=== PATIENT | male | born 1975 | race Caucasian/White ===

== ENCOUNTER 2024-09-26 16:04 | Outpatient (CLI) | payer OTHER, SELFPAY ==
[2024-09-26 16:48] LABS: Bilirubin Urine Negative (Negative); Blood Urine 3+ (Negative); Glucose Urine UA Negative (Normal); Ketones Urine Negative (Negative); Leukocyte Esterase Urine Negative (Negative); Nitrate Urine Negative (Negative); Protein Urine 3+ (Negative); Specific Gravity, Urine 1.013 (1.005-1.030); Urine Appearance Clear (CLEAR); Urine Color Yellow (Yellow); Urobilinogen Urine 0.2 mg/dL (Negative); pH Urine 6.5 (5-7)
[2024-09-26 17:03] LABS: Anion Gap 15.2 (5-19); Blood Urea Nitrogen 32 mg/dL (6-20); Calcium 9.1 mg/dL (8.5-10.5); Carbon Dioxide 28 mmol/L (22-29); Chloride 101 mmol/L (98-107); Glomerular Filtration Rate 40.5 mL/min (90-130); Glucose 104 mg/dL (65-115); Osmolality Calculated 297 mOsm/kg (285-295); Potassium 4.2 mmol/L (3.5-5.1); Sodium 140 mmol/L (136-145)
[2024-09-26 17:07] LABS: Urine Creatinine 89 mg/dL (39-259)
[2024-09-26 17:30] LABS: UA Manual Slide Review YES; UA Slide Review UA Slide Review Perf
[2024-09-26 17:31] LABS: Add Urine Culture? Yes; RBC Urine 25-40 /hpf (0-2); Squamous Epithelial Cell Urine 0-4 /hpf (0-5); WBC Urine 0-4 /hpf (0-5)
[2024-09-26 17:35] LABS: UPRO/UCREAT Ratio 2.25 mg/mg CR; Urine Protein Random 200 mg/dL
== END 2024-09-26 16:05 | disposition home or self-care (01) ==
PROVIDERS: PCP Nurse Practitioner Family; Visit Provider Registered Nurse
DX: R80.1 Persistent proteinuria, unspecified (principal)
CPT/HCPCS: 36415; 80048; 81001; 82570; 84156; 87086

== ENCOUNTER 2024-10-16 16:45 | Outpatient (CLI) | payer OTHER, SELFPAY ==
[2024-10-16 18:16] LABS: Albumin Level 3.8 g/dL (3.5-5.2); Anion Gap 15.3 (5-19); Blood Urea Nitrogen 39 mg/dL (6-20); Calcium 8.9 mg/dL (8.5-10.5); Carbon Dioxide 27 mmol/L (22-29); Chloride 103 mmol/L (98-107); Glomerular Filtration Rate 33.9 mL/min (90-130); Glucose 105 mg/dL (65-115); Phosphorus 4.1 mg/dL (2.5-4.5); Potassium 4.3 mmol/L (3.5-5.1); Sodium 141 mmol/L (136-145)
[2024-10-16 18:59] LABS: Urine Creatinine 86 mg/dL (39-259)
[2024-10-16 19:00] LABS: UPRO/UCREAT Ratio 1.45 mg/mg CR; Urine Protein Random 125 mg/dL
== END 2024-10-16 16:46 | disposition home or self-care (01) ==
LOC: LAB 16:54
PROVIDERS: Visit Provider Registered Nurse
DX: N18.32 Chronic kidney disease, stage 3b (principal); N02.8 Recurrent and persistent hematuria with other morphologic changes
CPT/HCPCS: 36415; 80069; 82570; 84156

== ENCOUNTER 2024-10-31 16:13 | Outpatient (CLI) | payer OTHER, SELFPAY ==
[2024-10-31 17:05] LABS: Albumin Level 3.8 g/dL (3.5-5.2); Anion Gap 12.2 (5-19); Blood Urea Nitrogen 48 mg/dL (6-20); Calcium 9.1 mg/dL (8.5-10.5); Carbon Dioxide 29 mmol/L (22-29); Chloride 102 mmol/L (98-107); Glomerular Filtration Rate 32.1 mL/min (90-130); Glucose 93 mg/dL (65-115); Phosphorus 4.3 mg/dL (2.5-4.5); Potassium 4.2 mmol/L (3.5-5.1); Sodium 139 mmol/L (136-145)
[2024-10-31 18:19] LABS: Creatinine Urine, Random 100 mg/dL (39-259)
[2024-10-31 18:32] LABS: Microalbum Creatinine Ratio Ur 650 mg/dL (0-20); Microalbumin Random Urine 65 ug/dL (0-20)
== END 2024-10-31 16:14 | disposition home or self-care (01) ==
LOC: LAB 16:16
PROVIDERS: PCP Family Medicine; Visit Provider Registered Nurse
DX: N18.32 Chronic kidney disease, stage 3b (principal)
CPT/HCPCS: 36415; 80069; 82044

== ENCOUNTER 2025-05-27 16:54 | Outpatient (CLI) | payer OTHER, SELFPAY ==
[2025-05-27 17:25] LABS: Hematocrit 38.2 % (37-53); Hemoglobin 12.40 g/dL (11.27-16.99); Mean Corpuscular HGB Conc 32.5 g/dL (30-55); Mean Corpuscular Hemoglobin 30.5 pg (27-33); Mean Corpuscular Volume 94.1 fl (82-101); Nucleated Red Blood Cells % 0 %; Platelet Count 211 10^3/cmm (157-399); Red Blood Count 4.06 10^6/uL (3.85-5.65); White Blood Count 7.60 10^3/uL (3.29-11.43)
[2025-05-27 18:15] LABS: Calcium 8.8 mg/dL (8.5-10.5)
[2025-05-27 19:11] LABS: Albumin Level 3.9 g/dL (3.5-5.2); Anion Gap 14.3 (5-19); Blood Urea Nitrogen 44 mg/dL (6-20); Calcium 8.9 mg/dL (8.5-10.5); Carbon Dioxide 27 mmol/L (22-29); Chloride 97 mmol/L (98-107); Glucose 99 mg/dL (65-115); Potassium 4.3 mmol/L (3.5-5.1); Sodium 134 mmol/L (136-145)
== END 2025-05-27 16:55 | disposition home or self-care (01) ==
PROVIDERS: PCP Family Medicine; Visit Provider Registered Nurse
DX: R80.1 Persistent proteinuria, unspecified (principal); E55.9 Vitamin D deficiency, unspecified; I12.9 Hypertensive chronic kidney disease with stage 1 through stage 4 chronic kidney disease, or unspecified chronic kidney disease
CPT/HCPCS: 36415; 80069; 82306; 82310; 83970; 85025

== ENCOUNTER 2025-06-03 16:45 | Outpatient (CLI) | payer OTHER, SELFPAY ==
[2025-06-03 17:53] LABS: Glucose Urine UA 3+ (Normal); Nitrate Urine Negative (Negative); Specific Gravity, Urine 1.015 (1.005-1.030)
[2025-06-03 18:18] LABS: Creatinine Urine, Random 90 mg/dL (39-259)
[2025-06-03 18:34] LABS: Microalbum Creatinine Ratio Ur 1067 mg/dL (0-20)
== END 2025-06-03 16:46 | disposition home or self-care (01) ==
LOC: LAB 16:45
PROVIDERS: PCP Family Medicine; Visit Provider Registered Nurse
DX: R80.1 Persistent proteinuria, unspecified (principal)
CPT/HCPCS: 81001; 82044

== ENCOUNTER 2025-07-02 11:43 | Outpatient (CLI) | payer OTHER, SELFPAY ==
[2025-07-02 18:47] LABS: Albumin Level 3.8 g/dL (3.5-5.2); Anion Gap 15.7 (5-19); Blood Urea Nitrogen 50 mg/dL (6-20); Calcium 8.8 mg/dL (8.5-10.5); Carbon Dioxide 26 mmol/L (22-29); Chloride 104 mmol/L (98-107); Glucose 109 mg/dL (65-115); Potassium 4.7 mmol/L (3.5-5.1); Sodium 141 mmol/L (136-145)
== END 2025-07-02 11:44 | disposition home or self-care (01) ==
PROVIDERS: PCP Family Medicine; Visit Provider Registered Nurse
DX: N18.32 Chronic kidney disease, stage 3b (principal)
CPT/HCPCS: 36415; 80069